=== PATIENT | female | born 1970 | race Caucasian/White ===

== ENCOUNTER 2021-06-27 06:10 | Day surgery (SDC) | payer OTHER ==
[2021-06-24 12:42] LABS: COVID AG,FIA SOURCE NASOPHARYNGEAL
[~2021-06-27] VITALS: Ht 170.2 cm; Wt 114.1 kg
[~2021-06-27 06:10] MED LIST: BECL10.62 PO; CETI10TA58 PO; CYCL10TA7 PO; DICL50TA9 PO; DULO30CA89 PO; DULO60CA98 PO; FAMO40TA7 PO; FERR-72 PO; FOLI-130 PO; GABA600T10 PO; METH2.5T6 PO; MONT10TA32 PO; OMEP20CA13 PO
[2021-06-27] MEDS ORDERED: SODIUM CHLORIDE 0.9% 1,000 ML ONE (06:11)
[2021-06-27] MEDS ORDERED: SODIUM CHLORIDE 0.9% 1,000 ML IV ONE (06:30)
[2021-06-27] MEDS ORDERED: MIDAZOLAM HCL 5 MG/ML VIAL ONE (07:07)
[2021-06-27] MEDS ORDERED: FentaNYL CITRATE PF 100 MCG/2 ML VIAL ONE (07:07)
[2021-06-27] MEDS ORDERED: MethylPREDNISolone SOD SUCC 125 MG/2 ML VIAL IVP ONE (09:00)
[2021-06-27] MEDS ORDERED: BENZOCAINE 20% 50 MCG/SPRAY 57 GM TP ONE (12:00)
[2021-06-27] MEDS ORDERED: LIDOCAINE 4% 50 ML SOLUTION TP ONE (12:00)
[2021-06-27] MEDS ORDERED: LIDOCAINE 2% 30 ML JELLY TP ONE (12:00)
[2021-06-27] MEDS ORDERED: OXYGEN THERAPY IH SCH (20:00)
== END 2021-06-27 10:45 | disposition home or self-care (01) ==
LOC: SURGERY 06:10
PROVIDERS: ATTEND Internal Medicine Critical Care Medicine
DX: R05 Cough (principal); R04.2 Hemoptysis; J34.89 Other specified disorders of nose and nasal sinuses; J98.8 Other specified respiratory disorders; J38.4 Edema of larynx; B37.0 Candidal stomatitis; J45.909 Unspecified asthma, uncomplicated; G47.33 Obstructive sleep apnea (adult) (pediatric); Z20.822 Contact with and (suspected) exposure to COVID-19; Z79.899 Other long term (current) drug therapy
CPT/HCPCS: 31623; 31624; 71045; 84703; 87015; 87070; 87101; 87205; 87206; 87220; 87426; 88108; 88184; 88185; 88312; C9803; J2250; J2930; J3010; J7030; Z7610